=== PATIENT | female | born 1945 | race Caucasian/White ===

== ENCOUNTER 2024-10-13 06:14 | Observation (INO) ==
[~2024-10-13 06:14] MED LIST: Acetaminophen IV 1 GM/100ML 1,000 MG/100 ML BAG IV ONE; Metoclopramide 5 MG/ML VIAL (10 mg) IV PRN; NS 0.45% 1000 ml BAG 1,000 ML IV SCH; Naloxone 0.4 mg VIAL 0.4 mg/ml 1 ml VIAL IV PRN; Ondansetron 4 mg VIAL 2 MG/ML 2 ml VIAL IV PRN; fentaNYL 100 mcg/2 ml 50 MCG/ML VIAL IV PRN
[2024-10-13 07:11] LABS: Rapid COVID-19 Molecular Undetected (Undetected)
[2024-10-13] MEDS ORDERED: Dexamethasone IV 4 MG/ML VIAL 1 ml VIAL ONE ×2 (07:18→09:17)
[2024-10-13] MEDS ORDERED: Midazolam 2 mg/2 ml VIAL 1 mg/ml 2 ml VIAL (2 mg) ONE (07:18)
[2024-10-13] MEDS ORDERED: fentaNYL 100 mcg/2 ml 50 MCG/ML VIAL ONE ×2 (07:18→09:24)
[2024-10-13] MEDS ORDERED: ROPIVACAINE 5 MG/ML 30 ML BTL (0.5%) ONE (07:18)
[2024-10-13] MEDS ORDERED: ceFAZolin 2 GM PREMIX 2 GM/50 ML BAG ONE (07:28)
[2024-10-13] MEDS: Buffered Lidocaine 1% SYRIN 1 ml INTRADERM ONE (07:32)
[2024-10-13] MEDS: Lactated Ringers 1000 ml BAG 1,000 ML IV SCH ×2 (07:33→13:10)
[2024-10-13] MEDS: Scopolamine 1 mg/72hr PATCH TRANSDERM ONE (07:33)
[2024-10-13] MEDS ORDERED: Propofol 10 MG/ML 20 ML BTL ONE (07:41)
[2024-10-13] MEDS ORDERED: Lidocaine 2% PF 5 ML VIAL ONE (07:41)
[2024-10-13] MEDS ORDERED: Bupivacaine 0.25% SDV 30 ML ONE (08:42)
[2024-10-13] MEDS ORDERED: Ondansetron 4 mg VIAL 2 MG/ML 2 ml VIAL ONE (09:17)
[2024-10-13] MEDS ORDERED: Phenylephrine 40 mcg/mL 10mL (400mcg) SYRINGE ONE (09:18)
[2024-10-13] MEDS ORDERED: Lactulose 30 ml UDC PO PRN (11:37)
[2024-10-13] MEDS ORDERED: Ondansetron 4 mg VIAL 2 MG/ML 2 ml VIAL IV PRN (11:37)
[2024-10-13] MEDS ORDERED: Ondansetron ODT 4 mg TAB 4 MG TAB PO PRN (11:37)
[2024-10-13] MEDS ORDERED: Magnesium Hydroxide LIQ 30 ML UDC PO PRN (11:37)
[2024-10-13] MEDS ORDERED: Morphine 2 MG/ML SYRINGE IV PRN (11:37)
[2024-10-13] MEDS: ceFAZolin 2 GM PREMIX 2 GM/50 ML BAG IV SCH (16:58)
[2024-10-13] MEDS: Magnesium Hydroxide LIQ 30 ML UDC PO SCH (20:15)
[2024-10-14] MEDS: Vitamin THERAPEUTIC TAB PO SCH (08:33)
[2024-10-14] MEDS: Calcium/Vitamin D TAB 250/125 TAB PO SCH (08:34)
[2024-10-14 09:32] LABS: Hematocrit 39.1 % (35-45); Hemoglobin 12.8 g/dL (11.5-14.3); Mean Platelet Volume 7.4 fL (7.5-11.2); Platelet Count 226 10^3/uL (150-450)
[2024-10-14 10:12] LABS: Calcium 8.6 mg/dL (8.6-10.3); Creatinine, Serum 0.86 mg/dL (0.51-0.95); Potassium 3.9 mmol/L (3.5-5.0); eGFR CKD-EPI 68.7 (>60)
[2024-10-15 09:47] VITALS: BP 129/50
== END 2024-10-15 13:05 | disposition home or self-care (01) ==
LOC: AA 06:14 → INTOOBSV 06:14 → EDSTATUS 08:30 → SSU 13:13
PROVIDERS: ADMIT Orthopaedic Surgery; ATTEND Orthopaedic Surgery